=== PATIENT | female | born 1990 | race Caucasian/White ===

== ENCOUNTER 2022-03-26 22:08 | Emergency (ER) | payer MEDICAID | END 2022-03-27 01:10 | disposition home or self-care (01) | LOC: MW.ED 22:08 | DX: R10.2 Pelvic and perineal pain (principal) | CPT/HCPCS: 74018; 74018-26; 81001; 81025; 87086; 99283; 99284 ==

== ENCOUNTER 2022-08-23 17:11 | Emergency (ER) | payer OTHER | END 2022-08-23 19:25 | disposition home or self-care (01) | LOC: MW.ED 17:11 | DX: M79.10 Myalgia, unspecified site (principal); M54.2 Cervicalgia; M25.512 Pain in left shoulder; V43.92XA Unspecified car occupant injured in collision with other type car in traffic accident, initial encounter; Y92.410 Unspecified street and highway as the place of occurrence of the external cause | CPT/HCPCS: 99283 ==

== ENCOUNTER 2023-06-08 23:22 | Emergency (ER) | payer SELFPAY ==
[2023-06-09 00:05] LABS: APPEARANCE,URINE CLEAR; BILIRUBIN,URINE NEGATIVE (NEGATIVE); COLOR,URINE YELLOW; GLUCOSE,URINE NEGATIVE (NEGATIVE); KETONES,URINE NEGATIVE (NEGATIVE); LEUKOCYTE ESTERASE,URINE SMALL (NEGATIVE); NITRITE,URINE NEGATIVE (NEGATIVE); OCCULT BLOOD,URINE NEGATIVE (NEGATIVE); PH,URINE 7.5 (5.0-8.0); PROTEIN,URINE NEGATIVE (NEGATIVE); UROBILINOGEN,URINE 0.2 EU/dL (<2.0)
[2023-06-09 00:08] LABS: BACTERIA,URINE FEW (NEGATIVE); MUCUS,URINE LIGHT (NONE-MOD); SQUAMOUS EPITHELIAL CELLS,UR FEW
[2023-06-09 00:25] LABS: BASOPHILS ABSOLUTE AUTO 0.04 K/uL (0.00-0.20); BASOPHILS PERCENT AUTO 0.3 % (0.0-1.0); EOSINOPHILS ABSOLUTE AUTO 0.13 K/uL (0.00-0.45); EOSINOPHILS PERCENT AUTO 1.1 % (0.0-6.0); HEMATOCRIT 36.4 % (37.0-47.0); HEMOGLOBIN 11.9 g/dL (12.0-16.0); IMMATURE GRAN ABSOLUTE AUTO 0.03 K/uL (0.00-0.05); IMMATURE GRAN PERCENT AUTO 0.3 % (0.0-0.4); LYMPHOCYTES ABSOLUTE AUTO 3.43 K/uL (1.00-4.80); LYMPHOCYTES PERCENT AUTO 29.3 % (24.0-44.0); MEAN CORPUSCULAR HEMOGLOBIN 26.4 pg (28.0-32.0); MEAN CORPUSCULAR HGB CONC 32.7 g/dL (32.0-36.0); MEAN CORPUSCULAR VOLUME 80.9 fL (83.0-99.0); MEAN PLATELET VOLUME 10.2 fL (9.4-12.3); MONOCYTES ABSOLUTE AUTO 0.92 K/uL (0.00-0.80); MONOCYTES PERCENT AUTO 7.9 % (0.0-8.0); NEUTROPHILS ABSOLUTE AUTO 7.2 K/uL (1.8-7.7); NEUTROPHILS PERCENT AUTO 61.1 % (41.0-71.0); PLATELET COUNT,PLT 321 K/uL (150-400)
[2023-06-09 00:45] LABS: ALBUMIN 3.9 g/dL (3.4-5.0); BILIRUBIN TOTAL 0.2 mg/dL (0.2-1.0); CALCIUM 8.7 mg/dL (8.5-10.1); CARBON DIOXIDE,CO2 25.7 mmol/L (21.0-32.0); CREATININE 0.8 mg/dL (0.6-1.0); EST CRCL DRUG DOSING (CG) 98.18 mL/min; PROTEIN TOTAL,TP 7.7 g/dL (6.4-8.2)
[2023-06-09 00:54] LABS: POTASSIUM,K 3.8 mmol/L (3.5-5.1)
== END 2023-06-09 03:01 | disposition home or self-care (01) ==
LOC: MW.ED 23:22
DX: O99.891 Other specified diseases and conditions complicating pregnancy (principal); R10.2 Pelvic and perineal pain; Z3A.01 Less than 8 weeks gestation of pregnancy
CPT/HCPCS: 36415; 76817; 76817-26; 80053; 81001; 84702; 85025; 86850; 86900; 86901; 87086; 99282; 99284

== ENCOUNTER 2023-07-06 22:15 | Emergency (ER) | payer MEDICAID ==
[2023-07-06 22:54] LABS: BASOPHILS ABSOLUTE AUTO 0.03 K/uL (0.00-0.20); BASOPHILS PERCENT AUTO 0.2 % (0.0-1.0); EOSINOPHILS ABSOLUTE AUTO 0.08 K/uL (0.00-0.45); EOSINOPHILS PERCENT AUTO 0.5 % (0.0-6.0); HEMATOCRIT 35.2 % (37.0-47.0); HEMOGLOBIN 11.6 g/dL (12.0-16.0); IMMATURE GRAN ABSOLUTE AUTO 0.05 K/uL (0.00-0.05); IMMATURE GRAN PERCENT AUTO 0.3 % (0.0-0.4); LYMPHOCYTES PERCENT AUTO 18.7 % (24.0-44.0); MEAN CORPUSCULAR VOLUME 78.9 fL (83.0-99.0); MEAN PLATELET VOLUME 9.6 fL (9.4-12.3); MONOCYTES ABSOLUTE AUTO 0.74 K/uL (0.00-0.80); MONOCYTES PERCENT AUTO 4.6 % (0.0-8.0); NEUTROPHILS ABSOLUTE AUTO 12.16 K/uL (1.80-7.70); NEUTROPHILS PERCENT AUTO 75.7 % (41.0-71.0); PLATELET COUNT,PLT 276 K/uL (150-400); RED BLOOD CELL COUNT 4.46 M/uL (4.10-5.30); WHITE BLOOD CELL COUNT,WBC 16.06 K/uL (3.9-11.3)
[2023-07-06 23:25] LABS: CARBON DIOXIDE,CO2 26.9 mmol/L (21.0-32.0); CREATININE 0.7 mg/dL (0.6-1.0); POTASSIUM,K 3.2 mmol/L (3.5-5.1)
[2023-07-06 23:26] LABS: CALCIUM 8.9 mg/dL (8.5-10.1); EST CRCL DRUG DOSING (CG) 112.2 mL/min
[2023-07-06 23:29] LABS: BILIRUBIN,URINE NEGATIVE (NEGATIVE); COLOR,URINE YELLOW; GLUCOSE,URINE NEGATIVE (NEGATIVE); KETONES,URINE 15 mg/dL (NEGATIVE); LEUKOCYTE ESTERASE,URINE TRACE (NEGATIVE); NITRITE,URINE NEGATIVE (NEGATIVE); OCCULT BLOOD,URINE NEGATIVE (NEGATIVE); PROTEIN,URINE NEGATIVE (NEGATIVE); UROBILINOGEN,URINE 0.2 EU/dL (<2.0)
[2023-07-06 23:38] LABS: APPEARANCE,URINE HAZY; BACTERIA,URINE MODERATE (NEGATIVE); EPITHELIAL CELLS,URINE FEW (NONE-FEW); RBC,URINE 0-1 (0-2/HPF)
[2023-07-06 23:39] LABS: MUCUS,URINE MODERATE (NONE-MOD)
[2023-07-07] MEDS ORDERED: Cephalexin 500 MG Cap PO ONE (00:08)
== END 2023-07-07 00:51 | disposition home or self-care (01) ==
LOC: MW.ED 22:15
DX: O23.91 Unspecified genitourinary tract infection in pregnancy, first trimester (principal); R82.71 Bacteriuria; O99.891 Other specified diseases and conditions complicating pregnancy; R51.9 Headache, unspecified; R42 Dizziness and giddiness; Z3A.10 10 weeks gestation of pregnancy
CPT/HCPCS: 36415; 76801; 80048; 81001; 84484; 84703; 85025; 93005; 99284; A9270; 93010; 99283